=== PATIENT | male | born 1985 | race African-American/Black ===

== ENCOUNTER 2016-08-21 01:35 | Emergency (ER) | payer SELFPAY ==
[~2016-08-21] VITALS: Ht 182.9 cm; Wt 70.7 kg
[2016-08-21 01:38] VITALS: BP 149/90
[2016-08-21] MEDS ORDERED: OXYcodone/APAP 5/325MG TABLET ONE (02:20)
[2016-08-21] MEDS ORDERED: OXYcodone/APAP 5/325MG TABLET PO ONE (02:30)
== END 2016-08-21 02:40 | disposition home or self-care (01) ==
LOC: ED 02:39
DX: K01.1 Impacted teeth (principal); K02.9 Dental caries, unspecified
CPT/HCPCS: 99283

== ENCOUNTER 2016-08-24 11:06 | Inpatient (IN) | payer MEDICAID ==
[~2016-08-24] VITALS: Ht 185.4 cm; Wt 65.4 kg
[2016-08-24] MEDS ORDERED: SODIUM CHLORIDE 0.9% 1,000ML IVBOLUS ONE (12:00)
[2016-08-24 12:05] LABS: BLOOD UREA NITROGEN 13 mg/dL (7-18)
[2016-08-24] MEDS ORDERED: OMNIPAQUE 350 MG/ML, 100ML BOTTLE ONE (12:52)
[2016-08-24] MEDS ORDERED: ONDANSETRON 2MG/ML, 2ML IVPush ONE (13:00)
[2016-08-24] MEDS ORDERED: ONDANSETRON 2MG/ML, 2ML ONE ×3 (13:01→21:01)
[2016-08-24] MEDS ORDERED: MORPHINE SULFATE 4 MG/ML, 1ML ONE ×2 (13:01→14:03)
[2016-08-24] MEDS: MORPHINE SULFATE 4 MG/ML, 1ML IVPush PRN ×2 (13:04→14:06)
[2016-08-24] MEDS ORDERED: CLINDAMYCIN PMX 600MG/50ML 50 ML ONE (13:13)
[2016-08-24] MEDS ORDERED: CLINDAMYCIN PMX 600MG/50ML 50 ML IV ONE (13:30)
[2016-08-24] MEDS ORDERED: CLINDAMYCIN 150 MG/ML, 6ML IVPB ONE (13:30)
[2016-08-24 16:00] VITALS: BP 116/75
[2016-08-24] MEDS ORDERED: ONDANSETRON 2MG/ML, 2ML IVPush PRN ×2 (16:00→20:30)
[2016-08-24] MEDS: SODIUM CHLORIDE 0.9% 1,000 ML IV SCH (16:19)
[2016-08-24] MEDS ORDERED: PENI500T PO (16:26)
[2016-08-24] MEDS ORDERED: HYDR-3240 PO (16:28)
[2016-08-24] MEDS: AMPICILLIN/SULBACTAM 3 GM in SODIUM CHLORIDE 0.9% 100 ML IV SCH ×2 (16:37→22:40)
[2016-08-24 16:49] VITALS: BP 116/75
[2016-08-24] MEDS: morphine SULFATE 10 MG/ML, 1ML IVPush PRN ×2 (17:11→22:34)
[2016-08-24] MEDS ORDERED: BUPIVACAINE/PF-EPI 0.5% 1:200K ONE (18:25)
[2016-08-24] MEDS ORDERED: LIDOCAINE 0.5%-EPI 1:200K, 50ML ONE (18:26)
[2016-08-24 18:57] VITALS: BP 112/73
[2016-08-24] MEDS ORDERED: FENTANYL PF 100 MCG/2ML ONE ×2 (20:12→20:58)
[2016-08-24] MEDS ORDERED: SUCCINYLCHOLINE 20 MG/ML, 10ML ONE (20:16)
[2016-08-24] MEDS ORDERED: PROPOFOL 10 MG/ML, 20ML ONE (20:16)
[2016-08-24] MEDS ORDERED: DEXAMETHASONE 4 MG/ML, 1ML ONE (20:16)
[2016-08-24] MEDS ORDERED: BUPIVACAINE/PF-EPI 0.5% 1:200K IM ONE (20:28)
[2016-08-24] MEDS ORDERED: LIDOCAINE 0.5%-EPI 1:200K, 50ML IM ONE (20:28)
[2016-08-24] MEDS ORDERED: MIDAZOLAM 1 MG/ML, 2ML IV PRN (20:30)
[2016-08-24] MEDS ORDERED: LABETALOL 5MG/ML, 20ML IV PRN (20:30)
[2016-08-24] MEDS ORDERED: MEPERIDINE/PF 25MG/0.5ML IVPush PRN (20:30)
[2016-08-24] MEDS ORDERED: HYDROmorphone 1 MG/ML, 1ML IV PRN (20:30)
[2016-08-24] MEDS ORDERED: hydrALAzine 20 MG/ML, 1ML IV PRN (20:30)
[2016-08-24] MEDS ORDERED: PROMETHAZINE 25 MG/ML, 1ML IV PRN (20:30)
[2016-08-24] MEDS ORDERED: MEPERIDINE/PF 25MG/0.5ML ONE (20:48)
[2016-08-24] MEDS ORDERED: OXYcodone 5 MG/5 ML ORAL.SOL UDC ONE (20:58)
[2016-08-24] MEDS: FENTANYL PF 100 MCG/2ML IV PRN ×2 (20:59→21:07)
[2016-08-24] MEDS: OXYcodone 5 MG/5 ML ORAL.SOL UDC PO PRN ×2 (21:00→21:06)
[2016-08-24 23:12] VITALS: BP 147/87
[2016-08-24] MEDS: CHLORHEXIDINE MOUTHWASH 15 ML UDC MM SCH (23:45)
[2016-08-25] MEDS ORDERED: MORPHINE SULFATE 4 MG/ML, 1ML ONE (02:01)
[2016-08-25] MEDS: morphine SULFATE 10 MG/ML, 1ML IVPush PRN (02:05)
[2016-08-25 03:18] VITALS: BP 111/68
[2016-08-25 05:10] LABS: BLOOD UREA NITROGEN 12 mg/dL (7-18)
[2016-08-25] MEDS: AMPICILLIN/SULBACTAM 3 GM in SODIUM CHLORIDE 0.9% 100 ML IV SCH ×2 (06:02→11:49)
[2016-08-25] MEDS: SODIUM CHLORIDE 0.9% 1,000 ML IV SCH (06:11)
[2016-08-25 08:55] VITALS: BP 119/66
[2016-08-25] MEDS: CHLORHEXIDINE MOUTHWASH 15 ML UDC MM SCH (09:12)
[2016-08-25] MEDS ORDERED: CHLO473M MM (11:50)
[2016-08-25] MEDS ORDERED: HYDR-3240 PO (11:50)
[2016-08-25] MEDS ORDERED: AMOX1TAB64 PO (11:50)
== END 2016-08-25 14:38 | disposition home or self-care (01) | DRG 158 ==
LOC: ED 12:00 → EDIP 14:18 → 4NOR 15:51 → DCLOUNGE 08-25 14:15
PROVIDERS: ADMIT Internal Medicine; ATTEND Internal Medicine
PROC: 0CDXXZ0 Extraction of Lower Tooth, Single, External Approach (ICD-10-PCS; 2016-08-24)
PROC: 0N9T0ZZ Drainage of Right Mandible, Open Approach (ICD-10-PCS; principal; 2016-08-24 20:30)
DX: M27.2 Inflammatory conditions of jaws (principal); E87.1 Hypo-osmolality and hyponatremia; K04.7 Periapical abscess without sinus; K02.9 Dental caries, unspecified; F17.210 Nicotine dependence, cigarettes, uncomplicated; F12.90 Cannabis use, unspecified, uncomplicated; Z82.5 Family history of asthma and other chronic lower respiratory diseases
CPT/HCPCS: 36415; 70487; 80048; 82040; 85025; 96365; 96375; 96376; J0295; J1100; J2175; J2405; J2704; J3010; Q9967; J0330; J2270; J7030